=== PATIENT | female | born 1990 | race Caucasian/White ===

== ENCOUNTER → 2024-02-29 14:39 | Outpatient (CLI) | payer OTHER, MEDICAID, SELFPAY | PROVIDERS: PCP Family Medicine; Visit Provider Obstetrics & Gynecology | DX: R30.0 Dysuria (principal) | CPT/HCPCS: 87086 ==

== ENCOUNTER 2024-02-29 18:39 | Observation (INO) | payer OTHER, MEDICAID, SELFPAY ==
[2024-02-29] VITALS (9 sets, daily range): BP systolic 91–124; BP diastolic 42–73; PULSE 67–82; RESP 14–26; TEMP 36.4–37.2; O2SAT 60–100; BMI 23.1
--- NOTE | 2024-02-29 | PATH_ITS ---
[facility] Accession Number: [id number] No. of containers..01 Tissue . 01 Material submitted: . product of conception - PRODUCTS OF CONCEPTION . 01 Diagnosis: PRODUCTS OF CONCEPTION, CURETTINGS: Chorionic villi and decidualized tissue, consistent with products of conception. MRV 03/06/2024 1314 Local . 01 Electronically signed: . Bia Malone MD, Pathologist NPI- [id number] . 01 Gross description: . Received in formalin with two patient identifiers and products of conception, are multiple guzman, spongy to membranous soft tissue fragments admixed with mucohemorrhagic material aggregating to 7.9 x 6.2 x 2.1 cm. No tissue is identified. Systems Integration Engineer sections are submitted in A1-A2. ([id number]) /MRV 03/02/2024 1021 Local . 01 Pathologist provided ICD-10: O02.1 . 01 CPT . 857168 Performed at: [address] [address], [place], [place] [id number] MD Erik Katz MD Phone: [phone]
--- NOTE | 2024-02-29 15:19 | PM.PREOP ---
Pre-operative Note Interval Note History & Physical reviewed/Exam performed by Physician: Yes Changes to H&P: No H&P completed within 30 days and has changed as indicated here:: 02/29/24 ASA Class (for procedural sedation): I
[2024-02-29] MEDS: LACTATED RINGERS 1,000 ML 42 ML IV (15:39)
[2024-02-29] MEDS: SCOPOLAMINE 1 PATCH TOP (15:40)
--- NOTE | 2024-02-29 16:38 | SUR.OPER ---
Lithotomy on padded OR bed, head on pillow, arms secured on padded arm boards at <90 degrees abduction. Legs secured in padded yellow fins stirrups.
[2024-02-29] MEDS: CEFAZOLIN 2 GM/100 ML PREMIX 100 ML IV (17:00)
[2024-02-29] MEDS: TRANEXAMIC ACID 1,000 MG in SODIUM CHLORIDE 0.9% 100 ML 200 MG IV (17:18)
[2024-02-29] MEDS: miSOPROStoL 200 MCG TABLET PR (17:40)
--- NOTE | 2024-02-29 17:59 | P.OP_ITS ---
Operative Date/Time/Diagnoses Date of procedure: 02/29/24 Time of procedure: 17:05 Pre-op diagnosis: incomplete SAB s/p failed medical management, retained products of conception Post-op diagnosis: same Procedure & Clinicians Procedure: suction dilation and curettage Same procedure as scheduled: Yes Indications: retained products of conception Surgeon: Alison Matson Click Yes if Unassisted: Yes Anesthesia Type: General Operative Notes Findings: normal external female gentialia, perineum and anus vaginal vault wnl cervix dilated to 0.5cm, purulent material noted at external os brisk arterial bleeding throughout curettage, source control obtained with additional utertonics and bimanual massage final EMS visualized via transabdominal US thin/wnl without persistent clot burden Closure Type: not applicable Specimen(s): other (endometrial contents ) Estimated Blood Loss (mL): 750 Blood products transfused: none Procedure in detail: Pt was taken to the operating room, transferred to OR table and anesthesia was induced with placement of ETT.? Pt had her legs placed in Angus stirrups and exam under anesthesia was performed.? The patient was prepped and draped in a sterile fashion.? A time out was performed.? The bladder was emptied via straight catheter in sterile fashion.? A sterile speculum was inserted into the vagina.? The cervix was visualized and grasped anteriorly using a single tooth tenaculum.? The uterus sounded to 10cm and the cervical os was serially dilated using Sandoval dilators to allow for adequate passage of suction catheter.? The 8mm curved suction curette was inserted into the uterus and the uterine contents we re evacuated. Uterine contents were visually inspected and noted to be consistent with products of conception.? Following second pass of suction curette brisk arterial bleeding from within the uterus was noted with limited response to bimanual massage or repeated passes of curette with noted palpable gritty texture of endometrium. Single tooth tenaculum removed and ring forceps applied at 6 and 9 o'clock without improvement and consistent with endometrial bleeding. H&H, T&S and fibrinogen ordered in addition to cross match 1u pRBC. Slow gradual decrease in bleeding with serial administration of uterotonics (10u IM pitocin, 300mg IV TXA, 250mcg SQ hemabate, 1000mg rectal misoprostol) as well as tamponade with bimanual massage. Bleeding at this time was noted to have stopped. A transabdominal US was performed that noted thin EMS. Tamponade was released and cervix was observed without recurrent bleeding. Speculum removed.? Hemostasis was again confirmed to be excellent.? The patient then had her legs taken out of stirrups.? The patient tolerated the procedure well and without difficulty despite higher degree of blood loss anticipated. Note 2g IV cefazolin administered prior to start of case secondary to concern for underlying infection. ? The patient was awakened from anesthesia and taken to PACU in stable condition. EBL confirmed with QBL per weight of sponges/drape. Complications: other (acute hemorrhage ) Post-operative Condition: stable Disposition: PACU Plan for aftercare: pending clinical course and return of labs, low threshold for admission to observation status
[2024-02-29 18:14] LABS: Add Manual Diff / Slide Review NO; Basophils Absolute Auto 0 /uL (0-100); Basophils Percent Auto 0.5 % (0-2); Eosinophils Absolute Auto 100 /uL (0-450); Eosinophils Percent Auto 1.8 % (2-4); Hematocrit 30.1 % (36-46); Hemoglobin 10.3 g/dL (12.0-16.0); Lymphocytes Absolute Auto 2100 /uL (1100-4500); Mean Corpuscular HGB Conc 34.2 % (30-36); Mean Corpuscular Volume 93.6 fL (80-100); Monocytes Absolute Auto 300 /uL (0-900); Monocytes Percent Auto 5.5 % (3-14); Neutrophils Absolute Auto 2900 /uL (1500-7000); Neutrophils Percent Auto 53.2 % (50-75); Platelet Count 196 X10^3/uL (150-400); Red Blood Cell Count 3.22 X10^6/uL (4.0-5.2); Red Cell Distribution Width 12.8 % (11.6-14.8); White Blood Cell Count 5.4 X10^3/uL (4.5-11.0)
[2024-02-29] MEDS: ACETAMINOPHEN IV 1,000 MG/100 ML VIAL 400 MG IV (18:16)
[2024-02-29] MEDS: OXYCODONE IR 5 MG TABLET PO (18:18)
[2024-02-29 18:24] LABS: Fibrinogen 200 mg/dL (238-498)
[2024-02-29] MEDS: KETOROLAC 30 MG/ML VIAL IV (18:35)
--- NOTE | 2024-02-29 18:40 | P.PN_ITS ---
Subjective Subjective Date Patient Seen: 02/29/24 Exam Vital Signs (past 8 hours): - 02/29/24 15:32 02/29/24 17:57 02/29/24 18:05 Temperature 97.9 F 98.1 F Pulse Rate 74 82 77 Respiratory Rate 16 16 18 Blood Pressure 115/70 115/65 124/73 Pulse Oximetry 99 100 60 L Oxygen Delivery Method Room Air Room Air Room Air 02/29/24 18:10 02/29/24 18:15 02/29/24 18:20 Temperature 99 F Pulse Rate 70 67 71 Respiratory Rate 14 18 26 H Blood Pressure 112/61 108/60 91/60 Pulse Oximetry 100 100 98 Oxygen Delivery Method Room Air Room Air Room Air Oxygen Delivery Method Room Air Const General: cooperative and comfortable Nutritional Appearance: average body habitus Orientation: alert, awake and oriented x3 Resp Effort & Inspection: normal respiratory effort Other: scant blood noted on peripad Skin General: pallor Neuro General: patient alert, patient awake and patient oriented x3 Objective Labs 02/29/24 17:33 Labs: Laboratory Results - last 24 hr 02/29/24 02/29/24 17:33 18:02 WBC 5.4 RBC 3.22 L Hgb 10.3 L Hct 30.1 L MCV 93.6 MCH 32.0 MCHC 34.2 RDW 12.8 Plt Count 196 Neut % (Auto) 53.2 Lymph % (Auto) 39.0 [place] % (Auto) 5.5 Eos % (Auto) 1.8 L Baso % (Auto) 0.5 Neut # (Auto) 2900 Lymph # (Auto) 2100 [place] # (Auto) 300 Eos # (Auto) 100 Baso # (Auto) 0 Fibrinogen 200 L PFSH Medical History (Updated 02/29/24 @ 15:29 by Alison Matson MD) Retained products of conception Surgical History (Updated 02/29/24 @ 15:23 by Steve Duarte RN) H/O breast augmentation Social History household members: spouse Smoking Status: Never smoker Assessment & Plan Post-op Postoperative Procedures: Procedures Operation Date: 02/29/24 15:45 Actual Procedure Side Surgeon p suction Dilation and Curettage Postoperative day: 0 Postoperative status narrative: Pt seen in PACU, states she is having some cramping and feels sensation to defecate but otherwise feels fine reviewed return of h/h (10.3/30.1) as well as intraoperative fibrinogen (200) consistent with early DIC, acute blood loss anemia secondary to intraoperative blood loss. Patient counseled on and in agreement with recommendation to remain in facility for overnight observation AM repeat CBC ordered, low threshold for transfusion as indicated Postoperative plan: routine post-op care Time Spent With Patient Time with patient: 25 - 35 minutes
[2024-02-29 21:09] LABS: Add Manual Diff / Slide Review NO; Basophils Absolute Auto 0 /uL (0-100); Basophils Percent Auto 0.3 % (0-2); Eosinophils Absolute Auto 0 /uL (0-450); Eosinophils Percent Auto 0.5 % (2-4); Hemoglobin 10.1 g/dL (12.0-16.0); Lymphocytes Absolute Auto 1400 /uL (1100-4500); Lymphocytes Percent Auto 17.8 % (25-40); Mean Corpuscular HGB Conc 33.6 % (30-36); Mean Corpuscular Hemoglobin 31.4 PG (26-34); Mean Corpuscular Volume 93.4 fL (80-100); Monocytes Absolute Auto 300 /uL (0-900); Monocytes Percent Auto 4.1 % (3-14); Neutrophils Absolute Auto 6200 /uL (1500-7000); Neutrophils Percent Auto 77.3 % (50-75); Platelet Count 195 X10^3/uL (150-400); Red Blood Cell Count 3.21 X10^6/uL (4.0-5.2); Red Cell Distribution Width 12.7 % (11.6-14.8)
[2024-03-01] VITALS (7 sets, daily range): BP systolic 87–108; BP diastolic 42–69; PULSE 54–88; RESP 16–19; TEMP 36.8–37; O2SAT 97–100
[2024-03-01 01:34] LABS: Add Manual Diff / Slide Review NO; Basophils Absolute Auto 0 /uL (0-100); Basophils Percent Auto 0.4 % (0-2); Eosinophils Absolute Auto 100 /uL (0-450); Eosinophils Percent Auto 1.5 % (2-4); Hematocrit 27.4 % (36-46); Hemoglobin 9.4 g/dL (12.0-16.0); Lymphocytes Absolute Auto 2300 /uL (1100-4500); Lymphocytes Percent Auto 31.3 % (25-40); Mean Corpuscular HGB Conc 34.5 % (30-36); Mean Corpuscular Volume 92.9 fL (80-100); Monocytes Absolute Auto 400 /uL (0-900); Monocytes Percent Auto 5.3 % (3-14); Neutrophils Absolute Auto 4400 /uL (1500-7000); Neutrophils Percent Auto 61.5 % (50-75); Platelet Count 193 X10^3/uL (150-400); Red Blood Cell Count 2.95 X10^6/uL (4.0-5.2); Red Cell Distribution Width 12.6 % (11.6-14.8); White Blood Cell Count 7.2 X10^3/uL (4.5-11.0)
[2024-03-01 08:05] LABS: Add Manual Diff / Slide Review NO; Basophils Absolute Auto 0 /uL (0-100); Basophils Percent Auto 0.7 % (0-2); Eosinophils Absolute Auto 100 /uL (0-450); Eosinophils Percent Auto 2.7 % (2-4); Hematocrit 27.6 % (36-46); Hemoglobin 9.3 g/dL (12.0-16.0); Lymphocytes Absolute Auto 1800 /uL (1100-4500); Lymphocytes Percent Auto 33.9 % (25-40); Mean Corpuscular HGB Conc 33.9 % (30-36); Mean Corpuscular Hemoglobin 31.6 PG (26-34); Mean Corpuscular Volume 93.2 fL (80-100); Monocytes Absolute Auto 300 /uL (0-900); Neutrophils Absolute Auto 3000 /uL (1500-7000); Neutrophils Percent Auto 57.7 % (50-75); Platelet Count 187 X10^3/uL (150-400); Red Blood Cell Count 2.96 X10^6/uL (4.0-5.2); Red Cell Distribution Width 12.6 % (11.6-14.8); White Blood Cell Count 5.3 X10^3/uL (4.5-11.0)
[2024-03-01] MEDS: LACTATED RINGERS 500 ML 1000 ML IV (09:28)
[2024-03-01] MEDS: IRON SUCROSE 300 MG in SODIUM CHLORIDE 0.9% 250 ML 176.667 MG IV (10:01)
--- NOTE | 2024-03-01 13:39 | P.DS_ITS ---
History of Present Illness History of Present Illness Date Patient Seen: 03/01/24 Time Patient Seen: 13:10 Chief complaint: Dilation and Curettage Narrative: 33yo presented 02/29/2024 for acute problem visit, referral from PCP for further management of retained products of conception following failed medical management of approx 7wga incomplete SAB. Patient states that miscarriage was diagnosed by her primary care doctor after developing light bleeding in early . She was prescribed misoprosotol for medical management of incomplete SAB and took this medication on both 01/05 and 01/06. Pt states she experienced significant pain clarice to contractions as well as parasympathetic sx (nausea, diarrhea, cold sweats) with heavy bleeding and passage of a large clot the approximate size of her fist that she assumed was the miscarriage. She did continue to have some slight spotting thereafter but believed this would resolve on its own. She subsequently developed symptoms of dysuria and lower pelvic pain/burning and again presented to her doctor for evaluation. Pt was noted to have +UPT in office and was sent for bHCG and then follow-up transvaginal US (OSH performed 02/28/24) resulted significant for clear evidence of retained products of conception. Patient was then urgently referred to our practice and added on today's schedule. Patient presents to office today accompanied by her spouse. She states that she is just very frustrated with the care she received previously and is worried now that the reason she is still having pelvic pain is a developing infection. She notes that she has had persistent spotting now for a total of 9 weeks including the week prior to taking the misoprostol medication. She denies abnormal vaginal discharge and has not had distinct fevers but has experienced cyclic chills at night for the last week or so. VSS/afebrile in office today however tired appearing. She was admitted on 02/29/2024 for emergent suction curettage. Discharge Providers Provider Date of admission: 02/29/24 18:39 Discharge Date: 03/01/24 Primary care physician: Kike Hoskins MD Consults: 02/29/24 18:24 Consult to Discharge Planning Routine Comment: Discharge provider: Tarun Ash MD Summary Hospital Course Discharge Diagnosis: Retained products of conception Hospital Course: Maida was admitted on the evening of 02/29/2024 and underwent emergent suction curettage of the uterus. Details of the procedure are well summarized in the operative note of Dr. Alison Matson on that date. Estimated blood loss at the time of surgery was 750 cc and required a series of uterotonics medications to stanch the bleeding. First postoperative morning H&H were 9.3/27.6 and the patient was experiencing some orthostatic symptoms as well as decreased MAP. Both responded very nicely to a 1000 cc bolus of Ringer's lactate and administration of 300 mg of iron sucrose. The patient's experienced prompt return of bowel and bladder function, she is ambulating independently, tolerating a regular diet, and her pain is well controlled with oral pain medication. She will be discharged at this time to home in an afebrile normotensive condition after counseling regarding precautionary symptoms, limitations of activity, medications, and plans for follow-up which will be in 2 weeks. Medications at discharge will include resumption of all pre-admission medications as well as Vibramycin 100 mg p.o. b.i.d. x7 days for antibiotic prophylaxis. Status at Discharge Cognitive/behavioral status at discharge: oriented Functional status at discharge: independent ambulation Overall status at discharge: patient is progressing back to baseline Time Spent with Patient Time spent: Less than 30 minutes Exam Vital Signs (past 8 hours): - 03/01/24 08:44 03/01/24 11:37 Temperature 98.6 F Pulse Rate 54 L Pulse Rate [Orthostatic Lying] 63 Respiratory Rate 19 Blood Pressure 87/46 L Blood Pressure [Orthostatic Lying] 103/63 Blood Pressure [Orthostatic Standing] 102/54 L Pulse Oximetry 98 Oxygen Flow Rate 0 Oxygen Delivery Method Room Air Oxygen Flow Rate 0 Const General: cooperative and comfortable Nutritional Appearance: average body habitus Orientation: alert and oriented x3 HENMT Head: normal to inspection, atraumatic and abrasion Ears: hearing grossly normal bilaterally Face and sinus: face symmetric Eyes General: appearance normal, both eyes and all related structures Conjunctivae: conjunctivae normal Sclera: sclerae normal EOM: EOM intact bilaterally Neck Neck: normal visual inspection Resp Effort & Inspection: normal respiratory effort and able to speak in complete sentences External Female Exam: other (No significant bleeding noted) Extrem General: no calf tenderness Psych Appearance: grossly normal Mental Status: mental status grossly normal Speech and Movement: speech and movement normal Mood: congruent mood Affect: normal affect Attitude: cooperative Thought Process: normal Thought Content: normal Judgment: judgment good Objective Labs 03/01/24 07:56 Labs: Laboratory Results - last 24 hr 02/29/24 02/29/24 02/29/24 17:33 18:02 20:55 WBC 5.4 8.0 RBC 3.22 L 3.21 L Hgb 10.3 L 10.1 L Hct 30.1 L 30.0 L MCV 93.6 93.4 MCH 32.0 31.4 MCHC 34.2 33.6 RDW 12.8 12.7 Plt Count 196 195 Neut % (Auto) 53.2 77.3 H D Lymph % (Auto) 39.0 17.8 L D [place] % (Auto) 5.5 4.1 Eos % (Auto) 1.8 L 0.5 L Baso % (Auto) 0.5 0.3 Neut # (Auto) 2900 6200 Lymph # (Auto) 2100 1400 [place] # (Auto) 300 300 Eos # (Auto) 100 0 Baso # (Auto) 0 0 Fibrinogen 200 L Blood Type A Negative Antibody Screen Positive Antibody Identification Anti-D 03/01/24 03/01/24 01:07 07:56 WBC 7.2 5.3 RBC 2.95 L 2.96 L Hgb 9.4 L 9.3 L Hct 27.4 L 27.6 L MCV 92.9 93.2 MCH 32.0 31.6 MCHC 34.5 33.9 RDW 12.6 12.6 Plt Count 193 187 Neut % (Auto) 61.5 57.7 Lymph % (Auto) 31.3 33.9 [place] % (Auto) 5.3 5.0 Eos % (Auto) 1.5 L 2.7 Baso % (Auto) 0.4 0.7 Neut # (Auto) 4400 3000 Lymph # (Auto) 2300 1800 [place] # (Auto) 400 300 Eos # (Auto) 100 100 Baso # (Auto) 0 0 Fibrinogen Blood Type Antibody Screen [facility] Medical History (Updated 02/29/24 @ 15:29 by Alison Matson MD) Retained products of conception Surgical History (Updated 02/29/24 @ 15:23 by Steve Duarte RN) H/O breast augmentation Social History household members: spouse Smoking Status: Never smoker alcohol intake: current Discharge Assessment & Plan Assessment and Plan Assessment: Retained products of conception Status post suction curettage of the uterus Chronic anemia with superimposed anemia due to operative blood loss as Plan of Treatment: Patient will increase the amount of iron rich foods in her diet for the next 30 days and/or add an nlya-ird-zqexxvt iron supplement with vitamin-C daily during that time. Follow-up will be in [address] Matson as needed Discharge Plan Discharge Plan Patient Disposition: Home Provider Discharge Comment: Please review the written instructions you received when you were discharged from the hospital. Your follow-up appointment with Dr. Matson will be scheduled for 2 weeks after your surgery and we look forward to seeing you then. If however you have any issues, concerns, or questions, please feel free to contact the office either by phone at [phone], or via the patient portal. Discharge orders & Medications Prescriptions: New doxycycline hyclate [Vibramycin] 100 mg capsule 100 mg PO BID 7 Days Qty: 14 0RF Continued nitrofurantoin monohyd/m-cryst 100 mg capsule 1 cap PO BID Follow up/Referrals: Kike Hoskins MD [Primary Care Provider] - Discharge Health Status Multidrug resistant organism: No MDRO Diet/Activity/Treatments Diet: Diet as Tolerated Activity: As tolerated Other treatments: Vask-lmy-wcrlamz Tylenol and/or ibuprofen may be used for additional pain relief Skin/Wound/Dressing Care Report to your healthcare provider any signs of infection, such as:: chills, fever, increased pain and unusual drainage Dressing: N/A Visit Report/Discharge Packet Instructions: DI for a Dilation and Curettage Stand Alone Forms: Patient Portal/API, Stroke Signs & Symptoms Discharge Data Primary Care Provider: Kike Hoskins Attending Provider: Alison Matson Admit Date/Time: 02/29/24 18:39 Quality VTE Deep Vein Thrombosis/Pulmonary Embolism Present on Admission: No
--- NOTE | 2024-03-01 13:59 | CM.DANOTE ---
Patient is a 33 yo female who was admitted on 02/29/24 for D&C. Pt has [employer] and [employer] for insurance. EMR was reviewed. Per OBGYN, pt with recent miscarriage and developed symptoms/dysuria and required D&C and tolerated well and medically stable for discharge home today with outpt f/u and no identified barriers to discharge. Per RN, pt has been independent in room and no concerns noted. Patient lives in [facility] with her spouse and is active and independent at baseline and drives and denies any discharge needs at this time and preference is home via family POV today. KANA Galicia
--- NOTE | 2024-03-01 14:11 | PC.NURSE ---
Day shift: Notified MD Matson and MD Ash regarding patient's low BP this AM. Patient symptomatic (dizzy) but AM H&H remained stable. MD Matson stated she thought patient needed blood transfusion. Patient stated she would prefer not to receive transfusion. MD Ash at bedside and ordered LR bolus + IV iron sucrose. Patient tolerated both well, she stated dizziness improved and BP also improved. Orthostatics negative. Discharge instructions gone over with patient and patient's SO. Patient stated understanding, all questions answered. PIV x2 removed prior to discharge. All belongings with patient. JEREMY Devine escorted patient via wheelchair to exit.
== END 2024-03-01 14:05 | disposition home or self-care (01) ==
LOC: AC 18:41
PROVIDERS: Nurse Anesthetist, Certified Registered; Admitting Provider Obstetrics & Gynecology; PCP Family Medicine; Referring Provider Obstetrics & Gynecology; Visit Provider Obstetrics & Gynecology
PROC: (CPT 58120; principal; 2024-02-29 15:45)
DX: O03.1 Delayed or excessive hemorrhage following incomplete spontaneous abortion (principal); O73.1 Retained portions of placenta and membranes, without hemorrhage; O99.03 Anemia complicating the puerperium; D62 Acute posthemorrhagic anemia; R30.0 Dysuria
CPT/HCPCS: 59812; 36415; 85025; 85384; 86850; 86870; 86900; 86901; 87086; G0378; J0134; J0690; J1756; J1885; J2590; S0191

== ENCOUNTER → 2024-03-05 11:30 | Outpatient (CLI) | payer OTHER, MEDICAID, SELFPAY ==
[2024-02-29 18:58] VITALS: BMI 23.1
[2024-03-05 12:14] LABS: Add Manual Diff / Slide Review NO; Basophils Absolute Auto 0 /uL (0-100); Basophils Percent Auto 0.9 % (0-2); Eosinophils Absolute Auto 100 /uL (0-450); Eosinophils Percent Auto 2.9 % (2-4); Hemoglobin 10.3 g/dL (12.0-16.0); Lymphocytes Absolute Auto 1700 /uL (1100-4500); Lymphocytes Percent Auto 38.8 % (25-40); Mean Corpuscular HGB Conc 34.5 % (30-36); Mean Corpuscular Hemoglobin 32.1 PG (26-34); Mean Corpuscular Volume 93.2 fL (80-100); Monocytes Absolute Auto 300 /uL (0-900); Monocytes Percent Auto 6.1 % (3-14); Neutrophils Absolute Auto 2200 /uL (1500-7000); Neutrophils Percent Auto 51.3 % (50-75); Platelet Count 245 X10^3/uL (150-400); Red Blood Cell Count 3.22 X10^6/uL (4.0-5.2); Red Cell Distribution Width 12.8 % (11.6-14.8); White Blood Cell Count 4.4 X10^3/uL (4.5-11.0)
== END ==
PROVIDERS: PCP Family Medicine; Referring Provider Obstetrics & Gynecology; Visit Provider Obstetrics & Gynecology
DX: D64.9 Anemia, unspecified (principal)
CPT/HCPCS: 36415; 85025

== ENCOUNTER 2024-05-21 12:48 | Day surgery (SDC) | payer OTHER, SELFPAY ==
[2024-02-29 18:58] VITALS: BMI 23.1
[2024-05-18 10:37] VITALS: BMI 22.8
--- NOTE | 2024-05-21 | PATH_ITS ---
[facility] Accession Number: [id number] No. of containers..01 Tissue . 01 Material submitted: . endometrium - ENDOMETRIAL CONTENTS . 01 Diagnosis: ENDOMETRIAL CONTENTS: Poorly preserved products of conception identified with extensive necrotic features and associated calcification. Fragments of proliferative endometrium; negative for endometrioid intraepithelial neoplasia or malignancy. [facility] 05/23/2024 1050 Local . 01 Electronically signed: . Jenise Zarate MD, Pathologist NPI- [id number] . 01 Gross description: . Received in formalin with two patient identifiers and endometrial contents, are multiple guzman and brown soft tissue fragments aggregating to 2.5 x 1.8 x 0.6 cm. Filtered and submitted in A1. ([id number]) /MRV 05/22/2024 1226 Local . 01 Pathologist provided ICD-10: N93.9, R93.5 . 01 CPT . 355801 Specimen Comment: A courtesy copy of this report has been sent to [facility] Pathology Performed at: [address] [address], [place], [place] [id number] MD Erik Katz MD Phone: [phone]
[2024-05-21 13:47] VITALS: BP 93/61; PULSE 64; RESP 18; TEMP 37.1; O2SAT 100; BMI 22.8
[2024-05-21] MEDS: LACTATED RINGERS 1,000 ML 84 ML IV (14:02)
[2024-05-21] MEDS: ACETAMINOPHEN 325 MG TABLET 975 MG PO (14:23)
[2024-05-21] MEDS: SCOPOLAMINE 1 PATCH TOP (14:24)
[2024-05-21] MEDS: FAMOTIDINE 20 MG/2 ML VIAL IV (14:26)
--- NOTE | 2024-05-21 14:28 | PM.PREOP ---
Pre-operative Note COVID-19 Result date/Date tested (Pos, Neg/Pending): 05/21/24 Interval Note History & Physical reviewed/Exam performed by Physician: Yes Changes to H&P: No H&P completed within 30 days and has changed as indicated here:: 05/16/24 ASA Class (for procedural sedation): II
--- NOTE | 2024-05-21 14:47 | SUR.OPER ---
Lithotomy on padded OR bed, head on pillow, arms secured on padded arm boards at <90 degrees abduction. Legs secured in padded yellow fins stirrups.
[2024-05-21] MEDS: SILVER NITRATE STICK 1 EACH TOP (15:04)
[2024-05-21 15:13] VITALS: BP 97/42; PULSE 56; RESP 15; TEMP 36.4; O2SAT 99
--- NOTE | 2024-05-21 15:13 | PM.OP.1 ---
Operative Date/Time/Diagnoses Date of procedure: 05/21/24 Time of procedure: 14:30 Pre-op diagnosis: abnormal uterine bleeding s/p prior septic SAB Post-op diagnosis: same Procedure & Clinicians Procedure: hysteroscopy, myosure resection of abnormal tissue Same procedure as scheduled: Yes Indications: abnormal uterine bleeding s/p prior septic SAB Surgeon: Alison Matson Click Yes if Unassisted: Yes Operative Notes Findings: normal external female genitalia, vagina, parous cervix intrauterine cavity without significant synchietae, noted calcified appearing fragmented tissue densely adherent to the R cornua and obstruction the R ostia normal appearing L ostia Closure Type: not applicable Specimen(s): other (endometrial contents ) Estimated Blood Loss (mL): 10 Blood products transfused: none Procedure in detail: Pt was taken to the operating room, transferred to OR table and anesthesia was induced with placement of LMA.? Pt had her legs placed in Angus stirrups and an exam under anesthesia was performed. The patient was prepped and draped in a sterile fashion.? A time out was performed. ?The bladder was emptied via straight catheter in sterile fashion.? A sterile speculum was inserted into the vagina.? The cervix was visualized and grasped anteriorly using a single tooth tenaculum.? The cervical os was serially dilated using Sandoval dilators up to 17f to allow for passage of the hysteroscope.? The 5mm 0 degree hysteroscope was then inserted into the uterus with findings as noted.? The Myosure device was introduced and the endometrium including visualized pathology was fractionally resected under direct visualization. The hysteroscope was removed and the uterus was gently curetted. The hystereoscope was reintroduced and intrauterine cavity was visualized circumferentially. The hysteroscope was removed.? The tenaculum was removed and hemostasis was noted at insertion sites.? The speculum was removed and hemostasis was again noted to be excellent.? The patient then had her legs taken out of stirrups.? The patient tolerated the procedure well and without difficulty.? The patient was awakened from anesthesia and taken to PACU in stable condition. Complications: none Post-operative Condition: stable Disposition: PACU Plan for aftercare: anticipate dc to home with routine postoperative f/u as scheduled
[2024-05-21 15:18] VITALS: BP 90/45; PULSE 56; RESP 20; O2SAT 99
[2024-05-21 15:23] VITALS: BP 88/45; PULSE 60; RESP 16; O2SAT 99
[2024-05-21 15:28] VITALS: BP 98/55; PULSE 76; RESP 12; O2SAT 99
[2024-05-21] MEDS: KETOROLAC 30 MG/ML VIAL 15 MG IV (15:31)
[2024-05-21 15:35] VITALS: BP 91/55; PULSE 59; RESP 14; TEMP 36.4; O2SAT 100
[2024-05-21] MEDS: OXYCODONE IR 5 MG TABLET PO (15:50)
== END 2024-05-21 16:11 | disposition home or self-care (01) ==
PROVIDERS: PCP Family Medicine; Referring Provider Obstetrics & Gynecology; Visit Provider Obstetrics & Gynecology
PROC: 0UDB8ZZ Extraction of Endometrium, Via Natural or Artificial Opening Endoscopic (ICD-10-PCS; CPT 58558; principal; 2024-05-21 14:30)
DX: O03.4 Incomplete spontaneous abortion without complication (principal)
CPT/HCPCS: 58563; 81025; J1100; J1885; J2250; J2405; J2704; J3010

== ENCOUNTER → 2024-11-09 17:55 | Outpatient (CLI) | payer OTHER, SELFPAY ==
[2024-02-29 18:58] VITALS: BMI 23.1
[2024-11-09 18:39] LABS: HCG Quantitative /Beta subunit 12052 mIU/mL
== END ==
LOC: LAB 17:56
PROVIDERS: PCP Family Medicine; Referring Provider Obstetrics & Gynecology; Visit Provider Obstetrics & Gynecology
DX: O20.9 Hemorrhage in early pregnancy, unspecified (principal)
CPT/HCPCS: 36415; 84702

== ENCOUNTER → 2024-11-12 11:33 | Outpatient (CLI) | payer OTHER, SELFPAY ==
[2024-02-29 18:58] VITALS: BMI 23.1
[2024-11-12 12:08] LABS: Add Manual Diff / Slide Review NO; Basophils Absolute Auto 0 /uL (0-100); Basophils Percent Auto 0.7 % (0-2); Eosinophils Absolute Auto 100 /uL (0-450); Eosinophils Percent Auto 2.2 % (2-4); Hematocrit 35.3 % (36-46); Hemoglobin 12.4 g/dL (12.0-16.0); Lymphocytes Absolute Auto 1700 /uL (1100-4500); Lymphocytes Percent Auto 34.8 % (25-40); Mean Corpuscular HGB Conc 35.1 % (30-36); Mean Corpuscular Hemoglobin 32.3 PG (26-34); Monocytes Absolute Auto 300 /uL (0-900); Monocytes Percent Auto 5.9 % (3-14); Neutrophils Absolute Auto 2800 /uL (1500-7000); Neutrophils Percent Auto 56.4 % (50-75); Platelet Count 233 X10^3/uL (150-400); Red Blood Cell Count 3.84 X10^6/uL (4.0-5.2); Red Cell Distribution Width 12.8 % (11.6-14.8)
[2024-11-12 12:13] LABS: Appearance Urine UA CLEAR; Bilirubin Urine UA NEGATIVE (NEGATIVE); Color Urine UA YELLOW; Glucose Urine UA NEGATIVE (Negative); Ketones Urine UA NEGATIVE (NEGATIVE); Leukocyte Esterase Urine UA 1+ (NEGATIVE); Nitrite Urine UA NEGATIVE (Negative); Occult Blood Urine UA NEGATIVE (Negative); Protein Urine UA NEGATIVE (Negative); Specific Gravity Urine UA <=1.005 (1.000-1.035); Urobilinogen Urine UA 0.2 E.U./dL (0.2)
[2024-11-12 12:19] LABS: Bacteria Urine None Seen; RBC Urine None Seen (0-5/HPF); Urine Volume 10mL (spun); WBC Urine 1-5/HPF (0-5/HPF)
[2024-11-12 12:20] LABS: Squamous Epithelial Cell Urine 1-5 /HPF (0-5/HPF)
[2024-11-12 13:27] LABS: HCG Quantitative /Beta subunit 19257 mIU/mL
[2024-11-13 06:36] LABS: Varicella IgG Antibody Reactive (Non Reactive)
[2024-11-13 15:13] LABS: Hepatitis B Surface Antigen NEGATIVE s/c (NEGATIVE)
[2024-11-13 15:29] LABS: HIV 1 & 2 Ab/Ag 4th Gen Combo NEGATIVE (NEGATIVE); Hep C Virus Ab w/Reflex Quant NEGATIVE s/c (NEGATIVE)
== END ==
LOC: LAB 11:34
PROVIDERS: Referring Provider Obstetrics & Gynecology; Visit Provider Obstetrics & Gynecology
DX: Z34.80 Encounter for supervision of other normal pregnancy, unspecified trimester (principal); N92.0 Excessive and frequent menstruation with regular cycle
CPT/HCPCS: 36415; 80055; 81003; 81015; 84702; 86787; 86803; 86850; 86900; 86901; 87086; 87389

== ENCOUNTER → 2024-11-20 19:01 | Outpatient (ROUT) | payer OTHER, SELFPAY ==
[2024-02-29 18:58] VITALS: BMI 23.1
[2024-11-20 21:22] LABS: Urine N gonorrhoeae NOT DETECTED
[2024-11-20 21:34] LABS: Urine Chlamydia NOT DETECTED
== END ==
LOC: LAB 19:02
PROVIDERS: Visit Provider Obstetrics & Gynecology
DX: Z34.91 Encounter for supervision of normal pregnancy, unspecified, first trimester (principal); Z3A.01 Less than 8 weeks gestation of pregnancy
CPT/HCPCS: 87491; 87591

== ENCOUNTER → 2025-01-16 12:00 | Outpatient (CLI) | payer OTHER, SELFPAY ==
[2024-02-29 18:58] VITALS: BMI 23.1
[2025-01-16 13:49] LABS: Natera Collection Specimen Collected
== END ==
PROVIDERS: Referring Provider Obstetrics & Gynecology; Visit Provider Obstetrics & Gynecology
DX: Z34.82 Encounter for supervision of other normal pregnancy, second trimester (principal); Z36.0 Encounter for antenatal screening for chromosomal anomalies
CPT/HCPCS: 36415

== ENCOUNTER → 2025-02-12 10:51 | Outpatient (CLI) | payer OTHER, SELFPAY ==
[2024-02-29 18:58] VITALS: BMI 23.1
--- NOTE | 2025-02-12 10:52 | DI.US.S_ITS ---
PROCEDURE: US OB >= 14 WEEKS FETUS INDICATIONS: anatomy scan OUTSIDE/PRIOR DATING DATA: Last menstrual period (LMP): 10/01/24 LMP-based estimated date of delivery (CHACE): 07/08/25. First dating scan (date and location): 11/20/24. Estimated date of delivery (CHACE) from first dating scan: 07/08/25. The calculations are made using the working CHACE of 07/08/25. TECHNIQUE: Real-time scanning was performed of the fetus, with image documentation and biometric measurements. Endovaginal scanning: No COMPARISON: None. FINDINGS: General: A single living intrauterine gestation is present. Presentation: Vertex. Placenta: Placental position is anterior , without previa. Amniotic fluid index: 14.3 cm, normal range is 5-24 cm. Single deepest vertical pocket is 5.2 cm. heart rate: 147 beats per minute. Maternal cervical canal: Closed and 5.2 cm long. Normal lower limit is 2.5 cm. biometrics: Biparietal diameter: 4.6 cm, 20 weeks 0 days Head circumference: 16.6 cm, 19 weeks two days Abdominal circumference: 14.6 cm, 19 weeks six days Femur length: 3.1 cm, 19 weeks four days Clinically estimated gestational age: 19 weeks one day Composite gestational age from present scan: 19 weeks five days Estimated weight and percentile: 308 g, 78th percentile Anatomic survey: Neuro: Ventricles are non-dilated at less than 10 mm. Cisterna magna is normal at 3-11 mm. Cerebellum is normal in size and morphology. Incidental note 2 mm right choroid plexus cyst. Nuchal skin fold: Normal at less than 6 mm between 14-21 weeks gestational age. Face: Nose and lips, facial profile are normal. Spine: No evidence for spina bifida. Heart: 4-chambered heart is present, with normal ventricular outflow tracts. Diaphragm: Diaphragm is intact. Stomach: Left-sided stomach is present. Kidneys: No hydronephrosis. Normal is less than 5 mm in 2nd trimester, less than 7 mm in 3rd trimester. Cord: 3-vessel cord has orthotopic insertion. Bladder: Normal in size. Extremities: All 4 extremities identified. IMPRESSION: Single living intrauterine with estimated weight at the 78th percentile. Composite gestational age is four days ahead of the expected gestational age. Symmetric growth and normal anatomy. Tiny choroid plexus cyst is of no clinical significance in isolation. Closed cervix and normal amniotic fluid volume. Anterior placenta. We strive to produce accurate, complete, and clear reports of imaging services. To assist us in improving patient care, this report was composed using standard report templates and voice recognition software. Therefore, it may contain abnormal punctuation, insertions and/or omissions. Occasional wrong-word or sound-alike substitutions may occur. Though we review the report and make efforts to correct it, we do recommend that the report be read carefully in proper context to recognize any text inaccuracies. Dictated by: Jessica Valenzuela M.D. on 02/12/2025 at 13:46 Approved by: Jessica Valenzuela M.D. on 02/12/2025 at 13:53
[2025-02-14 19:36] LABS: Gest Age on Col Date 19.1 weeks (.); OSBR Risk 1IN 10000 (.)
== END ==
PROVIDERS: Obstetrics & Gynecology; Referring Provider Emergency Medicine; Visit Provider Emergency Medicine
DX: Z34.92 Encounter for supervision of normal pregnancy, unspecified, second trimester (principal); Z36.0 Encounter for antenatal screening for chromosomal anomalies; Z3A.19 19 weeks gestation of pregnancy
CPT/HCPCS: 36415; 76811; 82105

== ENCOUNTER → 2025-03-20 11:19 | Outpatient (CLI) | payer OTHER, SELFPAY ==
[2024-02-29 18:58] VITALS: BMI 23.1
[2025-03-20 12:28] LABS: Hematocrit 33.0 % (36-46); Hemoglobin 11.5 g/dL (12.0-16.0)
[2025-03-20 15:20] LABS: GTT (PREG) 1 Hour PP 50gm Dose 166 mg/dL (76-139)
== END ==
PROVIDERS: Referring Provider Obstetrics & Gynecology; Visit Provider Obstetrics & Gynecology
DX: Z34.82 Encounter for supervision of other normal pregnancy, second trimester (principal)
CPT/HCPCS: 36415; 82950; 85014; 85018; 86850

== ENCOUNTER → 2025-03-26 09:51 | Outpatient (CLI) | payer OTHER, SELFPAY ==
[2024-02-29 18:58] VITALS: BMI 23.1
[2025-03-26 10:40] LABS: Glucose Fasting Gestational 89 mg/dL (76-95)
[2025-03-26 12:12] LABS: Glucose 1 Hour Gest 191 mg/dL (76-180)
[2025-03-26 13:12] LABS: Glucose Tol Interp,Gestational INTERPRETATION
[2025-03-26 13:19] LABS: Glucose 2 Hour Gest 183 mg/dL (76-155)
[2025-03-26 14:02] LABS: Glucose 3 Hour Gest 96 mg/dL (76-140)
== END ==
PROVIDERS: Obstetrics & Gynecology; Referring Provider Obstetrics & Gynecology; Visit Provider Obstetrics & Gynecology
DX: R73.09 Other abnormal glucose (principal)
CPT/HCPCS: 36415; 82951; 82952

== ENCOUNTER → 2025-04-02 08:56 | Outpatient (CLI) | payer OTHER, SELFPAY ==
[2024-02-29 18:58] VITALS: BMI 23.1
--- NOTE | 2025-04-02 10:48 | DIAB.GDA ---
Initial Gestational Diabetes Assessment Name: Maida Montiel Date: 04/02/25 Time: 9-10a Dx: Gestational Diabetes Provider: Huyen CHACE: 07/08/25 Weeks: 25 Maida presents with , [place], for initial GDM visit. FH of T2DM with father. No previous GDM dx. Did have one baby born 10# however this was over 40 weeks . 20wk US indicated 78th percentile. Reduced chocolate intake since results of OGTT. Per diet recall, seems to eat very balanced incorporating veggies, fruit, macro pairing etc. Has questions regarding how BG can impact baby and diet recs. Also, expresses questions about how BG would be managed with meds if needed. Sometimes feels shaky and hungry between breakfast and lunch. Bg in the 80s. It's a girl! Diet Recall: 9am: eggs, avocado, tomato, half homemade bread, 1 fruit 12p: 1c fried rice with chx. 3p: apple or banana with PB 5-6pm: salad, shrimp, 1c pasta water 120oz tea espresso with half n half Anthropometrics: Ht: 67 Wt: 165# 03/2025 Prepregnancy wt: 143# Physical Activity: Walks 2x per week 2-3 mi. Some limitations with physical discomforts. Self-Monitoring Blood Glucose: Checking FBG and 2 hour pc. Most in goal. One elevated pc reading >120mg/dl due to noodles and a jalepeno dip. Date Pre Post Pre Post Pre Post HS 03/31 83 80 96 100 04/01 86 87 123 71 04/02 82 Diabetes Medications: none Pertinent Labs: Screen: 166mg/dl OGTT: 89, 191, 183, 96 (mg/dl) Nutrition Rx: Carbohydrates: Meal: 45-60g lunch and dinner; 30g breakfast Snack: 15-30g Nutrition Diagnosis: Altered nutrition related lab value r/t GDM dx aeb recent OGTT Physical inactivity r/t limited exercise with physical discomfort aeb pt report Intervention: This participant was very receptive. Provided appropriate educational handouts. Discussed the following topics: GDM pathophysiology and impact of hyperglycemia on mom and baby Risk for T2DM for mom and baby in the future Ways to reduce risk T2DM Usual tx for hyperglcyemia in , though her FBG are in goal which currently indicates no need for med management at this time Plate Method, meal timing, carb counting, pairing macronutrients and spreading out CHO for better BG management Blood glucose goals (FBG: <95 and 1 hour <140 mg/dL or 2 hour <120mg/dl); importance of checking 4x per day (FBG and pc) Impact of macronutrients on blood glucose Recommended servings for carbohydrates at meals and snacks Brainstormed appropriate meal/snack ideas based on her food preferences Role of physical activity and following provider guidelines for safety Goals: Consider morning snack Aim for activity 3-5 days per week if having chocolate, add protein Follow-up: BRADLEY PEÑA follow-up in one week Tabitha Mckinney RDN, MARIANA Certified Diabetes Care and Program Management Specialist T: [phone] F: [phone] [email or web address] Thank you for this referral
== END ==
LOC: DIET 08:56
PROVIDERS: Referring Provider Obstetrics & Gynecology
DX: O24.419 Gestational diabetes mellitus in pregnancy, unspecified control (principal); Z3A.25 25 weeks gestation of pregnancy; Z83.3 Family history of diabetes mellitus; Z71.3 Dietary counseling and surveillance
CPT/HCPCS: 97802

== ENCOUNTER → 2025-04-09 11:31 | Outpatient (CLI) | payer OTHER, SELFPAY ==
[2024-02-29 18:58] VITALS: BMI 23.1
--- NOTE | 2025-04-09 11:34 | DIAB.GDFU ---
Follow-up Gestational Diabetes Assessment Name: Maida Montiel Date: 04/09/25 Time: 1130-3332h Dx: Gestational Diabetes Provider: Huyen CHACE: 07/08/25 Weeks: 27 Maida presents virtually using Portal for GDM visit. FH of T2DM with father. No previous GDM dx. Did have one baby born 10# however this was over 40 weeks . 20wk US indicated 78th percentile. It's a girl! Had a few nights with family pizza constitution party, with Bg 110mg/dl after 2 hours in goal. If hungry and shaky, I know I need a snack. Tried adding mid morning snack due to this. Increased activity. Craving chocolate with tea, but continues to avoid. Diet Recall: 9am: eggs, avocado, tomato, half homemade bread, 1 fruit sn: protein smoothie (protein powder with frozen berries, oat milk and water) or nothing 12p: soup veggie with potato and beef soup, crackers and dip 3p: apple or banana with PB 5-6pm: soup OR orange chicken with salad water 120oz tea espresso with half n half Anthropometrics: Ht: 67 Wt: 165# 03/2025 Prepregnancy wt: 143# Physical Activity: Walks 3x per week 2-3 mi. Some limitations with physical discomforts. Self-Monitoring Blood Glucose: Checking FBG and 2 hour pc. Most in goal, with one elevation r/t small candy with carb meal. Low of 66mg/dl at work with limited intake. Endorses feeling shaky with lower BG and changes in vision possibly with BG over 140mg/dl (not documented but after candy intake had a BG of 156mg/dl after 1 hour). 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 Interested in CGM sample. Date Pre Post Pre Post Pre Post HS 04/03 75 80 10 104 04/04 75 94 93 115 04/05 87 66 95 92 04/06 83 98 84 102 04/07 83 79 126 108 04/08 72 98 90 79 04/09 86 90 Diabetes Medications: none Pertinent Labs: Screen: 166mg/dl OGTT: 89, 191, 183, 96 (mg/dl) Nutrition Rx: Carbohydrates: Meal: 45-60g lunch and dinner; 30g breakfast Snack: 15-30g Nutrition Diagnosis: Altered nutrition related lab value r/t GDM dx aeb recent OGTT Physical inactivity r/t limited exercise with physical discomfort aeb pt report - improved Nutrition and food related knowledge deficit r/t new dx GDM aeb OGTT and pt report- continued Intervention: This participant was very receptive. Provided appropriate educational handouts. Discussed the following topics: s/s of lows and elevated BG Pairing macronutrients Blood glucose goals (FBG: <95 and 1 hour <140 mg/dL or 2 hour <120mg/dl) Recommended servings for carbohydrates at meals and snacks Brainstormed appropriate meal/snack ideas based on her food preferences Potential for CGM and coverage, precautions, benefits, and self placement recs Physical activity and following provider guidelines for safety Goals: Consider morning snack -- met Aim for activity 3-5 days per week- met if having chocolate, add protein- in progress [place] with chocolate and protein- new Download CGM deepak if wanting to try- new Follow-up: BRADLEY PEAÑ follow-up in two weeks. Sees OB in one week. RD will leave CGM sample with OB. Tabitha Mckinney RDN, MARIANA Certified Diabetes Care and Manager Of Information T: [phone] F: [phone] [email or web address] Thank you for this referral
== END ==
PROVIDERS: Referring Provider Obstetrics & Gynecology
DX: O24.419 Gestational diabetes mellitus in pregnancy, unspecified control (principal); Z3A.27 27 weeks gestation of pregnancy; Z71.3 Dietary counseling and surveillance
CPT/HCPCS: 97803

== ENCOUNTER → 2025-04-23 08:56 | Outpatient (CLI) | payer OTHER, SELFPAY ==
[2024-02-29 18:58] VITALS: BMI 23.1
--- NOTE | 2025-04-23 09:02 | DIAB.GDFU ---
Follow-up Gestational Diabetes Assessment Name: Maida Montiel Date: 04/23/25 Time: a Dx: Gestational Diabetes Provider: Huyen CHACE: 07/08/25 Weeks: 29 Maida presents virtually using Portal for GDM visit. FH of T2DM with father. No previous GDM dx. Did have one baby born 10# however this was over 40 weeks . 20wk US indicated 78th percentile. It's a girl! Started Dexcom sample. Started sharing info. Most BG are in goal. A few elevated postprandial readings with higher CHO intake, ie sushi rice. Tried a little chocolate, which she has been craving. No elevation after. States she would prefer CGM over SMBG. RD will try to find additional info on rx'd option vs OTC, since she is not on insulin. Had a compression/false low in the night. Has questions about lows vs highs. Last Diet Recall: 9am: eggs, avocado, tomato, half homemade bread, 1 fruit sn: protein smoothie (protein powder with frozen berries, oat milk and water) or nothing 12p: soup veggie with potato and beef soup, crackers and dip 3p: apple or banana with PB 5-6pm: soup OR orange chicken with salad water 120oz tea espresso with half n half Anthropometrics: Ht: 67 Wt: 169# 04/2025 165# 03/2025 Prepregnancy wt: 143# Physical Activity: Walks 3x per week 2-3 mi. Some limitations with physical discomforts. Self-Monitoring Blood Glucose: Checking FBG and 2 hour pc using CGM this week. Very good TIR. All FBG <95mg/dl. FBG in goal and 2 hour in goal, except one elevation after sushi. TIR: 5% over 140mg/dl 95% in range 0% low avmg/dl std dev: 18mg/dl variance 18.5% Today: Date Pre Post Pre Post Pre Post HS 04/17 84 94 120 04/18 79 109 117 114 04/19 89 100 154 04/20 85 91 71 85 04/21 89 79 113 107 04/22 85 104 85 92 04/23 82 Last Visit: Date Pre Post Pre Post Pre Post HS 04/03 75 80 10 104 04/04 75 94 93 115 04/05 87 66 95 92 04/06 83 98 84 102 04/07 83 79 126 108 04/08 72 98 90 79 04/09 86 90 Diabetes Medications: none Pertinent Labs: Screen: 166mg/dl OGTT: 89, 191, 183, 96 (mg/dl) Intervention: This participant was very receptive. Provided appropriate educational handouts. Discussed the following topics: recommended BG Reduced risk of lows without DM meds Making adjustments to CHO meals per CGM results Labeling FBG in deepak Continuing BG log for easy access for OB CGM access Physical activity and following provider guidelines for safety Goals: [place] with chocolate and protein- met Download CGM deepak if wanting to try- met Document FBG in CGM- new Continue BG log book for OB- new Follow-up: BRADLEY PEÑA follow-up in two weeks or sooner jessica Mckinney RDN, MARIANA Certified Diabetes Care and Supplier Quality Engineering Manager T: [phone] F: [phone] [email or web address] Thank you for this referral
== END ==
LOC: DIET 08:57
PROVIDERS: Referring Provider Obstetrics & Gynecology
DX: O24.419 Gestational diabetes mellitus in pregnancy, unspecified control (principal); Z3A.29 29 weeks gestation of pregnancy; Z71.3 Dietary counseling and surveillance
CPT/HCPCS: 97803

== ENCOUNTER → 2025-05-08 09:28 | Outpatient (CLI) | payer OTHER, SELFPAY ==
[2024-02-29 18:58] VITALS: BMI 23.1
--- NOTE | 2025-05-08 09:30 | DIAB.GDFU ---
Follow-up Gestational Diabetes Assessment Name: Maida Montiel Date: 05/08/25 Time: 930-950a Dx: Gestational Diabetes Provider: Huyen CHACE: 07/08/25 Weeks: 31 Maida presents virtually using Portal for GDM visit. FH of T2DM with father. No previous GDM dx. Did have one baby born 10# however this was over 40 weeks . 20wk US indicated 78th percentile. It's a girl! Using Dexcom Stelo OTC. Insurance did not cover G7. This week FBG have been higher, but she is somewhat questioning the accuracy. Has not checked with finger sticks yet. States she is eating carbs at meals, though does seem to have reduced intake since last visit. Reports driving to [place] and experiencing stress, which she noticed impacted her BG raising above 140mg/dl without eating. Diet Recall: 9-10am: eggs, avocado, tomato, +/- half homemade bread sn: protein smoothie (protein powder with frozen berries, oat milk and water) or nothing 12p: beef, cheese lasagna, less noodles 3p: apple or banana with PB OR cheese sticks 5-6pm: lasagna OR fish and chips OR tacos with 1 tortilla +/- a few chips HS: apples and cheese water tea espresso with half n half Anthropometrics: Ht: 67 Wt: 169# 04/2025 165# 03/2025 Prepregnancy wt: 143# Physical Activity: previously reported walks 3x per week 2-3 mi. Some limitations with physical discomforts. Self-Monitoring Blood Glucose: Checking FBG and 1 hour pc using CGM. Very good TIR, however FBG this week are above goal per CGM. Pt with check with fingerstick over the next two days to confirm, and RD will update OB by the end of the week. Sees OB Mihir next week. FBG 6/7 elevated, 1/6 elevated pc breakfast, 2/6 elevated pc lunch, 2/6 elevated pc dinner. Most elevations on iday with change in eating habits. TIR: 3% over 140mg/dl 96% in range 1% low <1% very low avmg/dl GMI: 5.8% std dev: 16mg/dl variance 15.7% Today: Date Pre Post Pre Post Pre Post HS 11/27 92 168 154 170 05/03 96 109 130 131 05/04 97 132 121 131 05/05 99 119 130 144 05/06 103 122 156 133 05/07 99 136 137 119 05/08 104 Last Visit: Date Pre Post Pre Post Pre Post HS 04/17 84 94 120 04/18 79 109 117 114 04/19 89 100 154 04/20 85 91 71 85 04/21 89 79 113 107 04/22 85 104 85 92 04/23 82 Diabetes Medications: none Pertinent Labs: Screen: 166mg/dl OGTT: 89, 191, 183, 96 (mg/dl) Nutrition Rx: Carbohydrates: Meal: 45-60g lunch and dinner; 30g breakfast Snack: 15-30g Nutrition Diagnosis: Altered nutrition related lab value r/t GDM dx aeb recent OGTT Intervention: This participant was very receptive. Provided appropriate educational handouts. Discussed the following topics: Encouraged adequate CHO intake and balancing BG management Reviewed potential for insulin therapy given FBG, if accurate Encouraged finger sticks for FBG this week to confirm Impact of stress on BG Goals: Document FBG in CGM- met Continue BG log book for OB- met Check FBG with fingerstick- new Follow-up: BRADLEY PEÑA follow-up in two weeks, RD will review CGM with fingersticks remotely in 2 days. Tabitha Mckinney RDN, MARIANA Certified Diabetes Care and Legal Specialist T: [phone] F: [phone] [email or web address] Thank you for this referral
== END ==
LOC: DIET 09:29
PROVIDERS: Referring Provider Obstetrics & Gynecology
DX: O24.419 Gestational diabetes mellitus in pregnancy, unspecified control (principal); Z3A.31 31 weeks gestation of pregnancy; Z71.3 Dietary counseling and surveillance; Z83.3 Family history of diabetes mellitus
CPT/HCPCS: 97803

== ENCOUNTER → 2025-05-14 10:51 | Outpatient (CLI) | payer OTHER, SELFPAY ==
[2024-02-29 18:58] VITALS: BMI 23.1
[2025-05-14 11:52] LABS: Add Manual Diff / Slide Review NO; Hematocrit 34.3 % (36-46); Hemoglobin 11.9 g/dL (12.0-16.0); Lymphocytes Absolute Auto 1100 /uL (1100-4500); Mean Corpuscular HGB Conc 34.6 % (30-36); Mean Corpuscular Hemoglobin 33.1 PG (26-34); Mean Corpuscular Volume 95.6 fL (80-100); Platelet Count 190 X10^3/uL (150-400)
[2025-05-14 12:11] LABS: HEMOLYSIS < 15 (0-50); Iron 292 ug/dL (37-170)
[2025-05-14 12:23] LABS: Percent Iron Saturation 62 % (15-50); Total Iron Binding Capacity 470 ug/dL (265-497); Transferrin 396 mg/dL (206-381)
== END ==
PROVIDERS: Referring Provider Obstetrics & Gynecology; Visit Provider Obstetrics & Gynecology
DX: O99.019 Anemia complicating pregnancy, unspecified trimester (principal)
CPT/HCPCS: 36415; 83540; 83550; 85025

== ENCOUNTER → 2025-05-22 10:03 | Outpatient (CLI) | payer OTHER, SELFPAY ==
[2024-02-29 18:58] VITALS: BMI 23.1
--- NOTE | 2025-05-22 10:13 | DIAB.GDFU ---
Follow-up Gestational Diabetes Assessment Name: Maida Montiel Date: 05/22/25 Time: 1030-1050a Dx: Gestational Diabetes Provider: Huyen CHACE: 07/08/25 Weeks: 35 Maida presents virtually using Portal for GDM visit. FH of T2DM with father. No previous GDM dx. Did have one baby born 10# however this was over 40 weeks . 20wk US indicated 78th percentile. Plans for another US next week. It's a girl! Using Dexcom Stelo OTC. Insurance did not cover G7. Noted increase in BG after hot showers for some reason. Some meals elevated, but unclear how accurate CGM data is at this time. Did have an elevations of 192mg/dl, explainable by pastries. Some elevations after hummus and chips or added persimmons with apple and pb. most Bg in goal. CGM is reading higher FBG, but fingersticks are in goal. Anthropometrics: Ht: 67 Wt: 171# 05/2025 169# 04/2025 165# 03/2025 Prepregnancy wt: 143# Physical Activity: Trying to walk after meals/snacks when elevated or higher CHO intake. Self-Monitoring Blood Glucose: Checking FBG and 1 hour pc using CGM. FBG 0/7 elevated, 2/6 elevated pc breakfast, 2/6 elevated pc lunch, 3/6 elevated pc dinner. Most elevations on with change in eating habits. Today: Date Pre Post Pre Post Pre Post HS 05/16 91 135 119 135 05/17 78 128 130 142 05/18 74 153 130 156 05/19 81 135 162 148 05/20 90 127 132 132 05/21 87 152 192 138 05/22 82 Last Visit: Date Pre Post Pre Post Pre Post HS 05/02 92 168 154 170 05/03 96 109 130 131 05/04 97 132 121 131 05/05 99 119 130 144 05/06 103 122 156 133 05/07 99 136 137 119 05/08 104 Today TIR: 5% over 140mg/dl 95% in range 0% low 0% very low avmg/dl GMI: 6.0% std dev: 13mg/dl variance 11.6% Last TIR: 3% over 140mg/dl 96% in range 1% low <1% very low avmg/dl GMI: 5.8% std dev: 16mg/dl variance 15.7% Diabetes Medications: none Pertinent Labs: Screen: 166mg/dl OGTT: 89, 191, 183, 96 (mg/dl) Nutrition Rx: Carbohydrates: Meal: 45-60g lunch and dinner; 30g breakfast Snack: 15-30g Nutrition Diagnosis: Altered nutrition related lab value r/t GDM dx aeb recent OGTT Excessive CHO intake r/t sometimes choosing higher CHO snacks aeb pt report and BG Intervention: This participant was very receptive. Provided appropriate educational handouts. Discussed the following topics: Encouraged finger sticks for FBG to confirm elevations Reviewed lower CHO snacks Goals: Check FBG with fingerstick- met Fingerstick after elevated BG and document in CGM- new Try veggies with hummus instead of chips- new Follow-up: BRADLEY PEÑA follow-up in two weeks. No need for Dm meds at this time given FBG. Will continue to monitor. Tabitha Mckinney RDN, MARIANA Certified Diabetes Care and Orthodontic Assistant T: [phone] F: [phone] [email or web address] Thank you for this referral
== END ==
LOC: DIET 10:03
PROVIDERS: Referring Provider Obstetrics & Gynecology
DX: O24.419 Gestational diabetes mellitus in pregnancy, unspecified control (principal); Z71.3 Dietary counseling and surveillance; Z83.3 Family history of diabetes mellitus
CPT/HCPCS: 97803

== ENCOUNTER → 2025-05-28 08:27 | Outpatient (CLI) | payer OTHER, SELFPAY ==
[2024-02-29 18:58] VITALS: BMI 23.1
--- NOTE | 2025-05-28 08:28 | DI.US.S_ITS ---
PROCEDURE: US OB LIMITED INDICATIONS: GESTATIONAL DIABETES - GROWTH OUTSIDE/PRIOR DATING DATA: Last menstrual period (LMP): 09/11/2024 LMP-based estimated date of delivery (CHACE): 07/08/2025 First dating scan (date and location): 11/20/2024 Estimated date of delivery (CHACE) from first dating scan: 07/08/2025. TECHNIQUE: Real-time scanning was performed of the fetus, with image documentation and biometric measurements. Endovaginal scanning: Not performed COMPARISON: None. FINDINGS: General: A single living intrauterine gestation is present. Presentation: Vertex Placenta: Placental position is anterior, without previa. Amniotic fluid index: 20.7 cm, normal range is 5-24 cm. Single deepest vertical pocket is 6.6 cm. heart rate: 145 beats per minute. Maternal cervical canal: Closed and measures 4.3 cm long. Normal lower limit is 2.5 cm. biometrics: Biparietal diameter: 8.8 cm, 35 weeks, 3 days. Head circumference: 31.9 cm, 36 weeks, 0 day. Abdominal circumference: 29.9 cm, 33 weeks, 6 days. Femur length: 6.7 cm, 34 weeks, 4 days. Clinically estimated gestational age: 34 weeks, 1 day. Composite gestational age from present scan: 35 weeks, 0 day. Estimated weight and percentile: 2434 g, 53%. Previously noted right choroid plexus cyst is no longer seen. IMPRESSION: 1. Single live intrauterine gestation with fetus in vertex presentation. heart rate is 145 beats per minute. Normal MICKIE at 20.7 cm. 2. Normal growth. Estimated weight is at 53%. 3. Previously noted right choroid plexus cyst is no longer seen. We strive to produce accurate, complete, and clear reports of imaging services. To assist us in improving patient care, this report was composed using standard report templates and voice recognition software. Therefore, it may contain abnormal punctuation, insertions and/or omissions. Occasional wrong-word or sound-alike substitutions may occur. Though we review the report and make efforts to correct it, we do recommend that the report be read carefully in proper context to recognize any text inaccuracies. Dictated by: Douglas Casey M.D. on 05/28/2025 at 16:05 Approved by: Douglas Casey M.D. on 05/28/2025 at 16:07
== END ==
LOC: US 08:28
PROVIDERS: Referring Provider Obstetrics & Gynecology; Visit Provider Obstetrics & Gynecology
DX: O24.419 Gestational diabetes mellitus in pregnancy, unspecified control (principal); Z3A.35 35 weeks gestation of pregnancy
CPT/HCPCS: 76815